=== PATIENT | male | born 1985 | race African-American/Black ===

== ENCOUNTER 2016-08-05 23:09 | Emergency (ER) | payer SELFPAY ==
[~2016-08-05] VITALS: Ht 177.8 cm; Wt 164.2 kg
[2016-08-05 23:15] VITALS: BP 129/84; PULSE 108; RESP 16; TEMP 100.1; O2SAT 97
[2016-08-06 00:05] VITALS: TEMP 98.2
[2016-08-06] MEDS ORDERED: ALLE60TA PO (00:24)
[2016-08-06] MEDS ORDERED: FLUT1SPR5 EACH NARE (00:25)
[2016-08-06] MEDS ORDERED: LORA-361 PO (00:26)
--- NOTE | 2016-08-06 00:27 | PD ---
HPI Chief Complaint: Allergic/Adverse Reaction Time Seen by Provider: 00:18 Travel History International Travel<30 days: No Contact w/Intl Traveler<30days: No History of Present Illness HPI Patient is a 30 year old male presents to the er with generalized pruritus associated with a rash. Patient states he had this one other time and was told it was a mild allergic reaction and a shot of steroids made him better. Patient cannot identify any alleviating or exacerbating factors. Denies difficulty swallowing, SOB, cough, choking sensations. Denies fevers. PFSH Past Medical History Narrative Medical Asthma Past Surgical History Surgical History: No Previous Surgery Family History Narrative Family History Non contributory Social History Tobacco Use: No Allergies-Medications (Allergen,Severity, Reaction): Coded Allergies: Bee Sting (Verified Allergy, Severe, Anaphylaxis, 08/06/16) Latex (Verified Allergy, Severe, Hives, 08/06/16) Shellfish (Verified Allergy, Severe, Hives, 08/06/16) [place] (Verified Allergy, Severe, Hives, 08/06/16) Uncoded Allergies: nuts (Allergy, Severe, Anaphylaxis, 08/06/16) Reported Meds & Prescriptions Reported Meds & Active Scripts Active Reported Diphenhydramine (Diphenhydramine HCl) 25 Mg Cap 25 Mg PO Q4H PRN Claritin (Loratadine) 10 Mg Tab 10 Mg PO HS Flonase Nasal [place] (Fluticasone Nasal [place]) 50 Mcg/Act [place] 50 Mcg EACH NARE BID [place] Allergy (Fexofenadine HCl) 60 Mg Tab 60 Mg PO BID Review of Systems Except as stated in HPI: all other systems reviewed are Neg Physical Exam Narrative GENERAL: WD/WN in nad. Morbidly obese. SKIN: Warm and dry. Dry rash, mildly erythematous over his entire person. Bilateral face, chest, abdomen, torso, back and upper extremities. Consistent with moderate atopic dermatitis. HEAD: Normocephalic. EYES: No scleral icterus. No injection or drainage. ENT: Oropharynx widely patent. No airway edema visible. No stridor. NECK: Supple, trachea midline. No JVD or lymphadenopathy. CARDIOVASCULAR: Regular rate and rhythm without murmurs, gallops, or rubs. RESPIRATORY: Breath sounds equal bilaterally. No accessory muscle use. No increased work of breathing. Lung sounds clear GASTROINTESTINAL: Abdomen soft, non-tender, nondistended. MUSCULOSKELETAL: No cyanosis, or edema. BACK: Nontender without obvious deformity. No CVA tenderness. Data Data Last Documented VS Orders Dexamethasone Inj (Decadron Inj) (08/06/16 00:45) MDM Medical Decision Making Medical Screen Exam Complete: Yes Emergency Medical Condition: Yes Differential Diagnosis Atopic dermatitis, allergic reaction, eczema, anaphylaxis excluded clinically. Narrative Course Patient roomed in ED. Appears well and in NAD. Steroids given. Discussed with the patient to follow up with his pcp and return to ed criteria. No airway involvemend at all by history or physical exam. Stable for discharge. Diagnosis Primary Impression: Atopic dermatitis Qualified Code: L20.9 - Atopic dermatitis, unspecified type Disposition: DISCHARGE HOME Condition: Stable Jamel Joseph MD Aug 06, 2016 00:27
[2016-08-06] MEDS ORDERED: DIPH25CA PO (00:29)
[2016-08-06] MEDS ORDERED: DEXAMETHASONE SOD PHOS 20 MG/5 ML VIAL IM ONE (00:45)
[2016-08-06 01:55] VITALS: BP 139/65; PULSE 89; RESP 20; O2SAT 96
== END 2016-08-06 01:55 | disposition home or self-care (01) ==
LOC: PHED 23:09
DX: L20.9 Atopic dermatitis, unspecified (principal)
CPT/HCPCS: 96372; 99282; J1100